=== PATIENT | male | born 1995 | race African-American/Black ===

== ENCOUNTER 2017-12-06 01:20 | Emergency (ER) | payer BC, MEDICAID ==
[~2017-12-06] VITALS: Ht 185.4 cm; Wt 64.9 kg
[2017-12-06] MEDS ORDERED: KETOROLAC TROMETH 60MG/2ML VIAL IM ONE (05:00)
[2017-12-06 08:39] VITALS: BP 120/63
== END 2017-12-06 11:50 | disposition home or self-care (01) ==
LOC: ER 01:22
DX: S02.32XA Fracture of orbital floor, left side, initial encounter for closed fracture (principal); S00.12XA Contusion of left eyelid and periocular area, initial encounter; J32.0 Chronic maxillary sinusitis; Y08.89XA Assault by other specified means, initial encounter; Y93.89 Activity, other specified; Y99.8 Other external cause status; Y92.89 Other specified places as the place of occurrence of the external cause
CPT/HCPCS: 70450; 70486; 96372; 99284; J1885